=== PATIENT | male | born 1980 | race Caucasian/White ===

== ENCOUNTER 2022-11-29 09:36 | Emergency (ER) | payer BC, SELFPAY ==
--- NOTE | ~2022-11-29 | CT_ITS ---
Noncontrast CT scan of the lumbar spine CLINICAL HISTORY: Back pain TECHNIQUE: Axial noncontrast imaging of the lumbar spine was performed. Sagittal and coronal reformat cristofer images were constructed. Dose reduction technique was used on this scan by utilizing automated ex posure control and iterative reconstruction technique. FINDINGS: There is no fracture or subluxation of the lumbar spine. Vertebral bodies maintain normal h eight and alignment. Intervertebral disc spaces are well preserved. No disc bulge or herniation seen at any lumbar level. No spinal canal stenosis or definite neural for aminal narrowing. Paravertebral soft tissues are unremarkable. IMPRESSION: Unremarkable exam. Reviewed, dictated and finalized at location M. ING MACHINE SERVICE OPERATOR IMPRESSION: Unremarkable exam.
[2022-11-29 09:54] VITALS: BP 149/76; PULSE 79; RESP 15; TEMP 36.6; O2SAT 96
[2022-11-29] MEDS: diazePAM INJ (*CRX) 10 MG/2 ML SYRINGE 2 MG IM (11:17)
[2022-11-29] MEDS: KETOROLAC (*BKC) 60 MG/2 ML VIAL IM (11:17)
--- NOTE | 2022-11-29 11:29 | ED.BACK ---
HPI - Back Pain/Injury General Chief Complaint: Back Pain/Injury <Parris Sanchez PA-C - Last Filed: 11/29/22 12:30> Stated Complaint: CHRONIC BACK PAIN <NELY Keyes Last Filed: 11/29/22 12:30> Time Seen by Provider: 11/29/22 09:55 <NELY Keyes Last Filed: 11/29/22 12:30> Source: patient <NELY Keyes Last Filed: 11/29/22 12:30> Mode of arrival: ambulatory <NELY Keyes Last Filed: 11/29/22 12:30> Limitations: no limitations <NELY Keyes Last Filed: 11/29/22 12:30> History of Present Illness HPI Narrative: Patient is a 42-year-old male who presents to the ED with report of low back pain. Patient reports having a history of previous similar low back pain. He states he had an episode 2 months ago which resolved on its own after a few days of rest. This current episode of pain began on 11/25 and has been progressively worsening since then. He denies any trauma or injury or fall. He has been taking ibuprofen with minimal relief. He states the pain is affecting his mobility at this time, which prompted his presentation. He has been using a cane for assistance. Patient denies any fever, weight loss, bowel or bladder incontinence, saddle anesthesia, pain or weakness in legs, abdominal pain, nausea, vomiting. <NELY Keyes Last Filed: 11/29/22 12:30> Related Data Allergies/Adverse Reactions: Allergies Allergy/AdvReac Type Severity Reaction Status Date / Time No Known Allergies Allergy Verified 11/29/22 09:57 <NELY Keyes Last Filed: 11/29/22 12:30> Review of Systems Review of Systems: CONSTITUTIONAL: Denies weight loss, fever, chills, or sweats. EYES: Denies visual changes. ENT: Denies rhinorrhea, congestion, sore throat. CARDIOVASCULAR: Denies chest pain. RESPIRATORY: Denies dyspnea. GASTROINTESTINAL: Denies incontinence, abdominal pain, nausea, vomiting, or diarrhea. GENITOURINARY: Denies incontinence, dysuria or hematuria. SKIN: Denies rash or itching. MUSCULOSKELETAL: Reports LBP. Denies pain down BLE. NEUROLOGIC: Denies headache, numbness, saddle anesthesia, or weakness. <Parris Sanchez PA-C - Last Filed: 11/29/22 12:30> All systems reviewed & are unremarkable except as noted in HPI and below <Parris Sanchez PA-C - Last Filed: 11/29/22 12:30> PMFSH Past Medical History Medical History: Medical History (Updated 11/30/22 @ 00:00 by Shalini Silva) No pertinent past medical history <Parris Sanchez PA-C - Last Filed: 11/29/22 12:30> Surgical History Surgical History: Surgical History (Updated 11/29/22 @ 11:45 by Parris Sanchez PA-C) No pertinent past surgical history <Parris Sanchez PA-C - Last Filed: 11/29/22 12:30> Social History Social History: Social History (Updated 11/29/22 @ 11:45 by Parris Sanchez PA-C) Smoking status: Never smoker <Parris Sanchez PA-C - Last Filed: 11/29/22 12:30> Exam Narrative: GENERAL: Mildly uncomfortable appearing, well-nourished, non-toxic, in mild acute distress d/t pain. HEAD: Normocephalic, atraumatic. NECK: Supple. No adenopathy, no masses. No midline spinal tenderness. RESPIRATORY: Airway patent, respirations nonlabored. Clear to auscultation bilaterally, no rales, rhonchi, wheezing. CARDIOVASCULAR: Regular rate and rhythm without murmurs, rubs, or gallops. Peripheral pulses 2+ and equal bilaterally. ABDOMINAL: Soft, nontender, nondistended, no hepatosplenomegaly. Normoactive BS. MUSCULOSKELETAL: Moves all extremities. Strength/ROM intact without gross deformities. Slower movements d/t pain but able to perform all movements. No thoracic midline spinal tenderness. Lower midline lumbar spinal tenderness with TTP extending into lumbosacral regions bilaterally. SKIN: Warm, dry, normal color. No rashes. NEURO: A&O X3. Speech clear. Cranial nerve
[2022-11-29 12:10] VITALS: BP 131/91; PULSE 64; RESP 15; O2SAT 99
[2022-11-29] MEDS: methylPREDNISolone SOD SUCC 125 MG VIAL IM (12:46)
== END 2022-11-29 12:46 | disposition home or self-care (01) ==
PROVIDERS: Emergency Provider Emergency Medicine
DX: S39.012A Strain of muscle, fascia and tendon of lower back, initial encounter (principal); X58.XXXA Exposure to other specified factors, initial encounter
CPT/HCPCS: 72131; 96372; 99284; J1885; J2930; J3360

== ENCOUNTER 2023-04-29 16:42 | Emergency (ER) | payer BC, SELFPAY ==
[2023-04-29 16:50] VITALS: BP 130/67; PULSE 80; RESP 12; TEMP 36.1; O2SAT 99
--- NOTE | 2023-04-29 17:03 | ED.EYEPROB ---
HPI - Eye Problem General Chief complaint: Eye Problems Stated complaint: Right Eye Irritation Time Seen by Provider: 04/29/23 17:04 Source: patient Mode of arrival: ambulatory Limitations: no limitations History of Present Illness HPI Narrative: 43-year-old male presented for complaint of right eye irritation and drainage tonight. The right eye was crusted shut this morning. Denies significant pain, stating it is sore from rubbing, worse on the outer corner. He states he may have had something fly into the eye yesterday while working on his car but does not recall injury. He denies vision changes, photophobia, dizziness, headache, nausea, vomiting, fevers or chills. Denies sick contacts. He wears contact lenses, remove them last night. Has been using saline rinse for symptoms. MD chief complaint: eye pain Related Data Allergies Allergy/AdvReac Type Severity Reaction Status Date / Time No Known Allergies Allergy Verified 04/29/23 16:58 Review of Systems Review of Systems: CONSTITUTIONAL: Denies body aches, fever, chills EYES:Endorses redness and drainage, denies swelling, pain, FB sensation, photophobia, visual changes ENT: Denies rhinorrhea, congestion, sore throat, or otalgia. CARDIOVASCULAR: Denies chest pain, palpitations RESPIRATORY: Denies cough or dyspnea. GASTROINTESTINAL: Denies abdominal pain, nausea, vomiting, or diarrhea. SKIN: Denies rash, itching, or wounds. MUSCULOSKELETAL: Denies back pain, joint pain, or myalgia. NEUROLOGIC: Denies headache, numbness, tingling, or weakness. All systems reviewed & are unremarkable except as noted in HPI and below PMFSH Past Medical History Medical History No pertinent past medical history Surgical History Surgical History No pertinent past surgical history Social History Social History Smoking status: Never smoker Comments At time of signature, I have reviewed and agree with nursing past medical, surgical, social and family history unless otherwise noted. Please see nursing chart for further information. There is no relevant family history pertinent to the presenting complaint Exam Narrative: GENERAL: Well-appearing HEAD: Normocephalic, atraumatic. EYES: Right conjunctival injection, moderate amount of purulent drainage, no eye lid swelling/redness c/w stye. PERRLA eOMI. Lid eversion showed no foreign body. No corneal abrasion on Wood's lamp exam. ENT: Mucous membranes pink and moist. No rhinorrhea. CHEST: Clear to auscultation. HEART: Regular rate and rhythm. ABDOMEN: Soft, nontender, nondistended SKIN: Warm, dry, no rash. Normal skin turgor. NEURO: No focal deficits. Alert and oriented x3 Course Course Emergency Course: Patient is aware of diagnosis, understands and agrees to treatment plan. Anticipatory guidance given. Patient agrees to follow-up as directed and is aware of reasons to seek care at the emergency department. Portions of this record may have been created with voice recognition software Level of Care: Express Care Visit Vital Signs Vital signs: Vital Signs Temperature 97 F L 04/29/23 16:50 Pulse Rate 80 04/29/23 16:50 Respiratory Rate 12 04/29/23 16:50 Blood Pressure 130/67 04/29/23 16:50 Pulse Oximetry 99 04/29/23 16:50 Oxygen Delivery Room Air 04/29/23 16:50 Temperature 97 F L 04/29/23 16:50 Pulse Rate 80 04/29/23 16:50 Respiratory Rate 12 04/29/23 16:50 Blood Pressure 130/67 04/29/23 16:50 Pulse Oximetry 99 04/29/23 16:50 Oxygen Delivery Room Air 04/29/23 16:50 Procedures FB Removal Eye Foreign Body #1: Foreign Body Removal Date: 04/29/23 Location: eye (R) Topical anesthetic used: tetracaine Foreign body: other (None) Evidence of corneal penetration: N
== END 2023-04-29 17:21 | disposition home or self-care (01) ==
PROVIDERS: Emergency Provider Nurse Practitioner Family
DX: H10.89 Other conjunctivitis (principal)
CPT/HCPCS: 99213; A9270; G0463

== ENCOUNTER 2025-08-04 17:24 | Emergency (ER) | payer OTHER, SELFPAY ==
[2025-08-04 17:36] VITALS: BP 133/90; PULSE 65; RESP 18; TEMP 36.4; O2SAT 98
--- NOTE | 2025-08-04 18:19 | ED.SKABFB ---
HPI - Skin/Abscess/Foreign Bdy General Chief complaint: Skin/Abscess/Foreign Body Stated complaint: allergic reaction Time Seen by Provider: 08/04/25 18:19 Source: patient, family, RN notes reviewed and old records reviewed Mode of arrival: ambulatory Limitations: no limitations History of Present Illness HPI narrative: 45-year-old male accompanied by why presents to Express Care lesion to central clearing noted scattered small pinprick size rough rash noted to his head, chest, abdomen back, bilateral legs and arms which is not linear in nature but is itchy for the past week. Patient reports that he also has round circular area with central clearing to his left buttock approximately 1.5cm diameter which does not hurt or is itchy since Saturday. Patient is unsure if he has had any exposure to poison plants, denies any new skin care products or any laundry soaps. Patient reports that no one else in home has rash. MD complaint: rash Onset (ago): week(s) (1) Location: generalized and buttocks (left buttock) Severity: moderate Related Data Allergies Allergy/AdvReac Type Severity Reaction Status Date / Time No Known Allergies Allergy Verified 08/04/25 17:50 Review of Systems Review of Systems: CONSTITUTIONAL: Denies fever, chills, or sweats. CARDIOVASCULAR: Denies chest pain, palpitations, or edema. RESPIRATORY: Denies cough or dyspnea. SKIN: Reports generalized areas of rough raised pinprick size rash head chest abdomen, back, legs and arms with itching no burning states no noted drainage, round lesion to left buttock with central clearing also MUSCULOSKELETAL: Denies joint pain or myalgia. NEUROLOGIC: Denies headache, numbness, or weakness. All systems reviewed & are unremarkable except as noted in HPI and below [facility] Past Medical History Medical History (Updated 08/06/25 @ 12:04 by Phyllis Mehta NP) No pertinent past medical history Surgical History Surgical History (Updated 08/06/25 @ 12:00 by Phyllis Mehta NP) Hx of hernia repair No pertinent past surgical history Social History Social History Smoking status: Never smoker Comments At time of signature, agree with nursing past medical, surgical, social and family history. There is no relevant family history pertinent to the presenting complaint Exam Narrative: GENERAL: Well-appearing, well-nourished, and in no acute distress. HEAD: Normocephalic, atraumatic. EYES: PERRLA, conjunctivae clear, and EOMI. ENT: Mucous membranes moist. Oropharynx without edema, erythema or lesions. NECK: Supple. No lymphadenopathy CHEST: Clear to auscultation. No respiratory distress. SAO2 98% on room air HEART: Regular rate and rhythm. SKIN: Warm, dry.? raised small patch areas of rough pinprick rash generalized that is itchy no linear formation. 1.5cm circular lesion to left buttock that has central clearing not itchy patient reports NEURO:? Alert and oriented x3. PSYCH: Normal mood and affect Course Course Emergency Course: Patient is aware of diagnosis, understands and agrees to treatment plan.? Anticipatory guidance given.? Patient agrees to follow-up as directed and is aware of reasons to seek care at the emergency department. Portions of this record may have been created with voice recognition software Level of Care: Express Care Visit Vital Signs Vital signs: Vital Signs Temperature 36.4 C 08/04/25 17:36 Pulse Rate 65 08/04/25 17:36 Respiratory Rate 18 08/04/25 17:36 Blood Pressure 133/90 08/04/25 17:36 Pulse Oximetry 98 08/04/25 17:36 Oxygen Delivery Room Air 08/04/25 17:36 Temperature 36.4 C 08/04/25 17:36 Pulse Rate 65 08/04/25 17:36 Respiratory Rate 18 08/04/25 17:36 Blood Pressure 133/90 08/04/25 17:36 Pulse Oximetry 98 08/04/25 17:36 Oxygen Delivery Room Air 08/04/25 17:36 Reviewed MDM - Skin/Abscess/Foreign Bdy MDM Narrative Medical decision making narrative: Does not appear at this time to be erythema multiforme, bullous, SJS, TEN; no evidence at this time to suggest RMSF, endocarditis or Lyme disease; patient looks well, nontoxic and is tolerating oral intake; no neurologic signs or symptoms; no headache, photophobia or neck pain; afebrile; appropriate for initial outpatient treatment; discussed the importance of follow-up, patient agrees; question, viral exanthema, contact dermatitis, allergic dermatitis, eczema, urticaria, [ xx ]. No soft palate or uvula edema, no tongue, lip edema or other mucosal involvement, no respiratory compromise, no stridor, no wheezing, no wheezing, no history of syncope, no hypotension, no nausea, vomiting, or diarrhea.? Instructed patient to go to nearest ER immediately for any worsening symptoms including but not limited to: fever, spreading rash, pain, sore throat, headache, dizziness, chest pain, trouble breathing, or any symptoms concerning to the patient. Differential Diagnosis Differential diagnosis: Likely abscess of skin or subcutaneous tissue, dermatophytosis, cellulitis, eczema and contact dermatitis Medical Records Attestation: I reviewed the patient's medical records. Critical Care Time Critical Care Time Critical Care Time: No Discharge Plan Discharge Clinical Impression: Ringworm of body Contact dermatitis Qualifiers: Contact dermatitis type: unspecified Contact dermatitis trigger: unspecified trigger Qualified Code(s): L25.9 - Unspecified contact dermatitis, unspecified cause Patient Disposition: Home Condition: Stable Instructions: Contact Dermatitis (ED), Tinea Corporis (ED) Additional Instructions: Apply clotrimazole ointment to left buttock lesion twice daily for up to 2 weeks,follow up with PCP if no improvement watch for increasing infection--redness, swelling, drainage Tylenol or Ibuprofen for any fever or pain follow up with PCP in 7-10 days for a wound check recheck if develop fever, chills, increasing symptom Go to the ER if your symptoms become worse of if ANY new symptoms develop Prednisone taper take as ordered Zyrtec daily and Benadryl orally at bedtime for itching, should not drive while taking Benadryl Pepcid 20 mg daily If your symptoms persist, change or worsen significantly before you can contact your personal physician then please, without delay, go to the emergency department for further evaluation. Follow-up with PCP in 7-10 days or sooner if needed Follow up with PCP soon in regards to your blood pressure which is elevated above threshold for referral. Blood pressure above 120/80 may indicate pre-hypertension. 130/90 Patient Language: Arabic Prescriptions: New clotrimazole 1 % cream 1 applic topical BID 14 Days Qty: 45 0RF Rx Instructions: to site on buttock prednisone 10 mg tablet 10 mg PO DIRECTED Qty: 21 0RF Rx Instructions: see taper instructions 6 tabs day 1, 5 tabs day 2, 4 tabs day 3, 3 tabs day 4, 2 tabs day 5, 1 tab day 6 famotidine [Pepcid] 20 mg tablet 20 mg PO DAILY Qty: 10 0RF Follow-up/Referrals: PHYSICIAN,TENONER OPERATOR [Primary Care Provider, Internal Medicine] Time of Disposition: 18:38 Quality Wayne Coma Scale Eyes: Open Verbal: Oriented and Alert Motor: Follows Commands Jasiel Coma Total Score: 15
== END 2025-08-04 18:45 | disposition home or self-care (01) ==
PROVIDERS: Emergency Provider Registered Nurse
DX: B35.4 Tinea corporis (principal); L25.9 Unspecified contact dermatitis, unspecified cause
CPT/HCPCS: 99213; G0463

== ENCOUNTER 2025-08-09 11:36 | Observation (INO) | payer OTHER, SELFPAY ==
--- OUTSIDE RECORDS SUMMARY | 2006-05-16 03:14 | XMS_ITS | Continuity of Care Document ---
Author Organization [facility] Address [address] [place] [address] Care Team Providers Care Medical Social Worker Name Role Phone Unavailable Unavailable Unavailable Procedures Procedure Date Ecg-routine 12 Lead; Intrpt & Advance Directives Directive Yes / No Effective Date File Name No Information Encounters Encounter Description Practice Location Reason(s) For Visit Diagnoses Date Provider Providers Copied on [facility], [address] [place] [address], [id number], [facility]. No Information No Information Referring Provider: Annabella Peña MD , [address], [address]. tel:[phone] Family History Family Member Type Diagnosis Age At Onset No Information Payers Payer name Insurance type Covered constitution party ID Authoriza tion(s) No Information Social History Type Description Quantity Date Captured Comments Sex Male Smoking Status No Information Chief Complaint And Reason For Visit No Information Reason For Referral Reason For Referral No Information History Of Present Illness Encounter Date Complaint History Of Prese nt Illness No Information Functional Status Date Functional Assessmen t No Information Instructions Date Instruction Additional Infor mation No Information Assessments Type Assessment Date No Information Patient Care Teams Name Effective Dates (start - stop) Status Members No Information
--- OUTSIDE RECORDS SUMMARY | 2006-05-16 03:14 | XMS_ITS | Continuity of Care Document ---
Author Organization [facility] Address [address] [place] [address] Care Team Providers Care Behavioral Health Tech Name Role Phone Unavailable Unavailable Unavailable Procedures Procedure Date Ecg-routine 12 Lead; Intrpt & Advance Directives Directive Yes / No Effective Date File Name No Information Encounters Encounter Description Practice Location Reason(s) For Visit Diagnoses Date Provider Providers Copied on [facility]counter [facility], [address] [place] [address], [id number], [facility]. No Information No Information Referring Provider: Annabella Peña MD , [address], [address]. tel:[phone] Family History Family Member Type Diagnosis Age At Onset No Information Payers Payer name Insurance type Covered democrat ID Authoriza tion(s) No Information Social History [...]
[2025-08-09] VITALS (11 sets, daily range): BP systolic 120–151; BP diastolic 74–95; PULSE 54–78; RESP 17–20; TEMP 36.4–36.6; O2SAT 95–98; BMI 26.0; BMI 26.9
--- NOTE | ~2025-08-09 | XR_ITS ---
Examination: XR chest 2V Clinical History: chest pain, sob Comparison: None Technique: PA and Lateral Findings: Cardiomediastinal silhouette normal size and configuration. Lungs clear. No acute bony abnormality. IMPRESSION: 1. No acute cardiopulmonary findings. Reviewed, dictated and finalized at location A.
--- NOTE | ~2025-08-09 | CT_ITS ---
CTA CHEST CLINICAL HISTORY: shortness of breath . COMPARISON: Chest x-rays 2 days prior TECHNIQUE: Helical CTA performed from thoracic inlet to upper abdomen IV contrast information not listed in PACS Coronal, sagittal reformats. Multiplanar MIPS CT images acquired with automatic exposure control for dose reduction DLP: 685 mGy-cm FINDINGS: Motion artifact could obscure subtle abnormality, especially along bases. Pulmonary arteries: No PE identified. Thoracic Aorta: No dissection or aneurysm. Heart/pericardium: Unremarkable. RV/LV ratio: Normal. Lungs/Pleura: Clear. Tracheobronchial tree: Patent. Nodes: No enlarged nodes. Bones: No acute bony abnormality. Soft tissues: Unremarkable. Visualized upper abdomen: Hepatomegaly, with steatosis. IMPRESSION: 1. No PE or other acute cardiopulmonary findings. Reviewed, dictated and finalized at location R.
--- NOTE | 2025-08-09 11:38 | ECG_ITS ---
Test Date: 2025-08-09 11:45:06 Measurements Intervals [place] Rate: 75 P: 59 WV: 157 QRS: 53 QRSD: 110 T: 46 QT: 379 QTc: 425 Interpretive Statements SINUS RHYTHM No previous ECG available for comparison Electronically Signed On 08-09-2025 12:26:34 CDT by Angel Brooks M.D.
--- OUTSIDE RECORDS SUMMARY | 2025-08-09 11:54 | XMS_ITS | Clinical Summary ---
Author Organization [facility] Address [address] [place] [phone] Phone Care Team Providers Care Senior Contracts Manager Name Role Phone Unavailable Primary Care Provider Unavailabl e Allergies No known active allergies Medications No known medications Active Problems Problem Noted Date Diagnosed Date Umbilical hernia without obstruction and without gangrene 10/30/2018 Umbilical hernia 10/30/2018 Overview (10/30/2018): Added automatically from request for surgery [id number] Abdominal pain 01/25/2012 Family History Medical History Relation Name Comments Diabetes Maternal Grandmother Diabetes Paternal Grandmother Relation Name Status Comments Maternal Grandmother Paternal Grandmother Social History Tobacco Use Types Packs/Day Years Used Date Smoking Tobacco: Former Smokeless Tobacco: Never Comments:1 pack per 2 weeks Alcohol Use Standard Drinks/Week Comments Yes 35 (1 standard drink = 0.6 oz pu re alcohol) Sex and Gender Information Value Date Recorded Sex Assigned at Not on file Legal Sex Male 5:51 AM CONSTRUCTION EQUIPMENT TECHNICIAN Gender Identity Not on file Sexual Orientation Not on file Occupation Industry Job Start Date Job End Date Not on file Not on file Not on file Not on file Last Filed Vital Signs Vital Sign Reading Time Taken Comments Blood Pressure 114/71 11/19/2018 1:06 PM CONSTRUCTION EQUIPMENT TECHNICIAN Pulse 74 11/05/2018 1:43 PM CONSTRUCTION EQUIPMENT TECHNICIAN Temperature 36.1 C (97 F) 11/05/2018 1:43 PM CONSTRUCTION EQUIPMENT TECHNICIAN Respiratory Rate 16 11/05/2018 1:43 PM CONSTRUCTION EQUIPMENT TECHNICIAN Oxygen Saturation 96% 11/05/2018 1:43 PM CONSTRUCTION EQUIPMENT TECHNICIAN Inhaled Oxygen Concentration - - Weight 88.9 kg (196 lb) 11/19/2018 1:06 PM CONSTRUCTION EQUIPMENT TECHNICIAN Height 180.3 cm (5' 11) 11/19/2018 1:06 PM CONSTRUCTION EQUIPMENT TECHNICIAN Body Mass Index 27.34 11/19/2018 1:06 PM CONSTRUCTION EQUIPMENT TECHNICIAN Plan of Treatment Health Maintenance Due Date Last Done Comments DTAP/TDAP/TD VACCINES (1 - Tdap) 2000 HEPATITIS B VACCINES (1 of 3 - 19+ 3-dose series) 03/02 HPV VACCINES (1 - 3-dose SCDM series) 2008 INFLUENZA VACCINE (#1) 2025 Medical Devices Implanted Type Area Field Property Loss Specialist Device Identifier Shelf Expiration Date Model / Serial / Lot Mesh Ventralex 1.7in [facility] [address] [id number] - [id number] Implanted:Qty : 1 on 11/05/2018 by Charles Sánchez MD at [facility] Mesh N/A: Umbilical CR [employer] [id number] 07/29/2020 [id number] / / [id number] Insurance RX [facility] Commercial Advance Directives For more information, please contact: [phone] * Full Code (Latest Code Status on File) Date Activated Date Inactivated Comments 11/05/2018 9:01 AM 11/05/2018 3:58 PM * Full Code Date Activated Date Inactivated Comments 11/05/2018 8:35 AM 11/05/2018 9:01 AM
[2025-08-09 12:02] LABS: Hematocrit 44.3 % (42.0-52.0); Hemoglobin 15.0 g/dL (14.0-18.0); Immature Granulocyte Percent A 1.2 % (0-0.5); Lymphocytes Absolute Auto 4.35 K/mm3 (0.9-3.2); Mean Corpuscular HGB Conc 33.9 g/dl (32-36); Mean Corpuscular Hemoglobin 31.3 pg (26-34); Mean Corpuscular Volume 92.5 fl (80-100); Nucleated Red Blood Cells Absolute Auto 0.000 K/mm3 (0.0-0.012); Nucleated Red Blood Cells Perc 0.0 % (0.0-0.2); Platelet Count Result 252 k/mm3 (150-375); Red Blood Count 4.79 M/mm3 (4.6-6.20); White Blood Count 11.1 K/mm3 (4.5-10.0)
[2025-08-09 12:16] LABS: INR 0.9; Partial Thromboplastin Time 25.4 Seconds (22.3-36.8); Prothrombin Time 12.8 Seconds (11.1-14.7)
[2025-08-09 12:18] LABS: Alanine Aminotransferase 76 U/L (6-50); Albumin Level 4.4 g/dL (3.5-5.1); Alkaline Phosphatase 67 U/L (38-126); Anion Gap 7 mmol/L (4-12); Aspartate Amino Transferase 36 U/L (17-59); Bilirubin,Total 0.5 mg/dL (0.2-1.3); Blood Urea Nitrogen 19 mg/dL (9-20); Calcium 9.3 mg/dL (8.4-10.2); Carbon Dioxide 25 mmol/L (22-30); Chloride 105 mmol/L (98-107); Estimated CRCL calculation 110 ml/min; Estimated Glomerular Filt Rate > 60; Glucose 94 mg/dL (65-110); Lipase 45 U/L (23-300); Potassium 3.7 mmol/L (3.4-5.0); Sodium 137 mmol/L (137-145); Total Protein 8.5 g/dL (6.3-8.2)
--- NOTE | 2025-08-09 12:18 | ED_ITS ---
HPI - General Adult General Chief complaint: Chest Pain Stated complaint: SOB since 0 last night Time Seen by Provider: 08/09/25 11:49 History of Present Illness HPI narrative: 45-year-old male presents to the emergency department for chest tightness and chest pain. Patient is reporting bilateral chest tightness that was worsening this morning along with substernal chest pain that does radiate into his left arm. Patient states that he does not exercise but he does have exertional chest pain. Patient report a stress test approximately 20 years ago patient is unsure why he had this. Patient denies any prior history of pulmonary embolism. Patient denies any recent falls or injuries. Patient denies posterior calf pain. Patient is not a current smoker but does report a prior history of limited smoking. Related Data Allergies Allergy/AdvReac Type Severity Reaction Status Date / Time No Known Allergies Allergy Verified 08/04/25 17:50 Review of Systems 2 Review of Systems: All systems reviewed & are unremarkable except as noted in HPI and below PMFSH Past Medical History Medical History (Updated 08/09/25 @ 15:28 by Mihaela Baca APRN) No pertinent past medical history Surgical History Surgical History (Updated 08/09/25 @ 15:28 by Mihaela Baca APRN) Hx of hernia repair Social History Social History Smoking status: Former smoker Alcohol intake: current Drinks per week: 14 Substance use: never Substance use type: does not use Lack of Transportation: No Lack of Food: Never True Current Housing: I Have Housing Concerned About Future Housing: No Difficulty Paying Gas/Electric Bills: No Difficulty Paying for Meds: No Currently Unemployed: No Education: High School Diploma/GED Difficulty w/ Childcare or Family Care: No Spiritual care concerns: No Exam 2 Narrative: APPEARANCE: Well appearing, no pain, no distress, well-nourished. HEAD: normocephalic, atraumatic. EYES: PERRLA/EOMI, conjunctivae clear. NOSE: Normal no drainage EARS:TMS clear with good light reflex. THROAT: Pharynx clear, no exudate. NECK: Supple. No adenopathy, no masses. RESPIRATORY: Airway patent, respirations nonlabored. Clear to auscultation bilaterally, no rales, rhonchi, wheezing. CARDIOVASCULAR: Regular rate and rhythm without murmurs rubs or gallops. ABDOMINAL: Soft, nontender, nondistended, normal bowel sounds MUSCULOSKELETAL: Moves all extremities. Strength/ROM intact, No edema, No calf tenderness. NEURO: Alert. Cranial nerves II through XII intact. Good gait. Good coordination SKIN: Warm, dry. Normal Color Course Vital Signs Vital signs: Vital Signs Temperature 97.6 F 08/09/25 11:40 Pulse Rate 72 08/09/25 11:40 Respiratory Rate 17 08/09/25 11:40 Blood Pressure 151/95 H 08/09/25 11:40 Pulse Oximetry 98 08/09/25 11:40 Oxygen Delivery Room Air 08/09/25 11:40 Temperature 97.6 F 08/09/25 11:40 Pulse Rate 67 08/09/25 18:00 Respiratory Rate 19 08/09/25 15:42 Blood Pressure 130/88 08/09/25 15:42 Pulse Oximetry 98 08/09/25 15:42 Oxygen Delivery Room Air 08/09/25 11:48 Medical Decision Making [facility] Narrative Medical decision making narrative: 45-year-old male present to the emergency department for evaluation for report of chest pain and chest tightness. Patient does report exertional chest pain that occurs intermittently at work. Patient states that today he had chest tightness and substernal chest pain that radiated to his left arm. Patient was having pain upon arrival to the emergency department he was treated with sublingual nitro and states that the chest pain did resolve but still does have some chest tightness. Patient is currently afebrile but does have a leukocytosis of 11.1 hemoglobin of 15.0. INR 0.9, patient's D-dimer is not elevated at 0.31. No significant acute abnormalities on the CMP and patient had a negative initial troponin. Patient was negative for influenza RSV and for COVID. Chest x-ray shows no acute cardiopulmonary abnormality. EKG shows normal sinus rhythm. Patient does not have a primary care physician and does not have adequate outpatient follow-up. I am concerned with the patient's story of worsening exertional angina. I did discuss admission to the patient for further cardiac rule out and patient was willing to stay. Case will be discussed with the hospitalist. Differential Diagnosis Differential Diagnosis: AR, ACS, pulmonary embolism, pneumonia, pneumothorax, pleurisy Vital Signs Vital Signs: Vital Signs Temperature 97.6 F 08/09/25 11:40 Pulse Rate 72 08/09/25 11:40 Respiratory Rate 17 08/09/25 11:40 Blood Pressure 151/95 H 08/09/25 11:40 Pulse Oximetry 98 08/09/25 11:40 Oxygen Delivery Room Air 08/09/25 11:40 Temperature 97.6 F 08/09/25 11:40 Pulse Rate 67 08/09/25 18:00 Respiratory Rate 19 08/09/25 15:42 Blood Pressure 130/88 08/09/25 15:42 Pulse Oximetry 98 08/09/25 15:42 Oxygen Delivery Room Air 08/09/25 11:48 Lab Data Lab results reviewed: Yes I reviewed the patient's lab results. 08/09/25 11:54 08/09/25 11:54 Labs: Lab Results 08/09/25 08/09/25 Range/Units 11:54 12:28 WBC 11.1 H (4.5-10.0) K/mm3 RBC 4.79 (4.6-6.20) M/mm3 Hgb 15.0 (14.0-18.0) g/dL Hct 44.3 (42.0-52.0) % MCV 92.5 (80-100) fl MCH 31.3 (26-34) pg MCHC 33.9 (32-36) g/dl RDW 13.1 (11.5-14.5) % Plt Count 252 (150-375) k/mm3 MPV 10.1 (7.4-10.4) fl Immature Gran % (Auto) 1.2 H (0-0.5) % Neut % (Auto) 50.1 (45.5-73.1) % Lymph % (Auto) 39.3 (18.3-44.2) % [place] % (Auto) 7.1 (2.6-8.5) % Eos % (Auto) 1.8 (0-4.4) % Baso % (Auto) 0.5 (0.2-1.2) % Lymph # (Auto) 4.35 H (0.9-3.2) K/mm3 [place] # (Auto) 0.8 H (0.1-0.6) K/mm3 Eos # (Auto) 0.2 (0-0.3) K/mm3 Baso # (Auto) 0.1 (0.0-0.1) K/mm3 Abs Immat Gran (auto) 0.13 H (0.00-0.031) K/mm3 Absolute Neuts (auto) 5.6 (1.3-6.7) K/mm3 Absolute Nucleated RBC 0.000 (0.0-0.012) K/mm3 Nucleated RBC % 0.0 (0.0-0.2) % PT 12.8 (11.1-14.7) Seconds INR 0.9 APTT 25.4 (22.3-36.8) Seconds D-Dimer 0.31 (<0.48) ug/mL Sodium 137 (137-145) mmol/L Potassium 3.7 (3.4-5.0) mmol/L Chloride 105 (98-107) mmol/L Carbon Dioxide 25 (22-30) mmol/L Anion Gap 7 (4-12) mmol/L BUN 19 (9-20) mg/dL Creatinine 0.91 (0.7-1.3) mg/dL Estim Creat Clear Calc 110 ml/min Estimated GFR > 60 (59 - ) Glucose 94 (65-110) mg/dL Calcium 9.3 (8.4-10.2) mg/dL Total Bilirubin 0.5 (0.2-1.3) mg/dL AST 36 (17-59) U/L ALT 76 H (6-50) U/L Alkaline Phosphatase 67 (38-126) U/L Troponin I < 0.012 (0.000-0.034) ng/mL Total Protein 8.5 H (6.3-8.2) g/dL Albumin 4.4 (3.5-5.1) g/dL Lipase 45 (23-300) U/L Influenza A (RT-PCR) Negative (Negative) Influenza B (RT-PCR) Negative (Negative) RSV (RT-PCR) Negative (Negative) SARS-CoV-2 RNA (RT-PCR) Negative (Negative) Imaging Data Radiologist's impression: Impressions Chest X-Ray 08/09/25 12:53 IMPRESSION: 1. No acute cardiopulmonary findings. ECG Data EKG #1: EKG Interpretation: normal rate, sinus rhythm, no ectopy, non-specific ST changes, normal QRS, normal QT and NL axis Discharge Plan Discharge Clinical Impression: Chest pain Qualifiers: Chest pain type: other chest pain Qualified Code(s): R07.89 - Other chest pain Patient Disposition: Still a Patient Condition: Stable Quality HEART score for chest pain patients History: highly suspicioius ECG: normal Age: < or = to 45 years Risk factors: 1 or 2 risk factors Troponin: < or = to 1x normal limit Heart score: 3
[2025-08-09 12:25] LABS: Troponin I < 0.012 ng/mL (0.000-0.034)
[2025-08-09] MEDS: NITROGLYCERIN SL 0.4 MG TABLET SUBLINGUAL (12:26)
[2025-08-09] MEDS: ALBUTEROL SULFATE NEB 2.5 MG/3 ML INH INHALATION (12:29)
[2025-08-09 13:11] LABS: Influenza A QL RT-PCR Negative (Negative); Influenza B QL RT-PCR Negative (Negative); RSV RNA, RT-PCR Negative (Negative); SARS-CoV-2 RNA PCR Negative (Negative)
--- NOTE | 2025-08-09 14:58 | PM.IMHP ---
H&P: HPI History of Present Illness Date/Time: 08/09/25 14:58 Chief Complaint: Chest Pain Narrative: 45 y/o M with PMH of GERD presents here with chest pain. The patient presents here from home on 08/09 for further evaluation of chest pain. The patient reports he has been experiencing exertional chest pain for the past couple of weeks and has been occurring on average once per day. Typically feels stabbing as if someone would jab their thumb into his chest, midsternal, would last for less than 10-15 seconds, and would resolve without intervention or medication. Patient again developed chest pain and chest tightness today around 0700 while he was doing physical activity at work. He describes the chest pain as similar to before but this time was accompanied by shortness of breath which was new. This prompted patient to seek evaluation in the emergency department. Upon arrival he had chest pain which was treated with sublingual nitro. Post medication he reports a resolution in pain, however is still experiencing some degree of shortness of breath. He denies nausea, vomiting, diaphoresis, or lightheadedness. He does report occasional palpitations and intermittent acid reflux like symptoms. He has no previous cardiac history. Denies any significant family cardiac history. The patient reports he does not have a primary care physician and does not have adequate outpatient follow-up. The patient denies any recent increase in stress, states his stress has recently decreased. Initial VS at presentation: 97.6? F, HR 72, R 17, 151/95, and 98% on RA. ED workup showed: WBC 11.1, no anemia, normal coags, negative D-dimer, no significant electrolyte derangements, renal function within normal limits, viral PCR negative, initial troponin negative. CXR showed no acute cardiopulmonary findings. EKG showed sinus rhythm, rate 75. Review of Systems Review of Systems: All systems reviewed & are unremarkable except as noted in HPI and below [facility] Past Medical History Medical History (Updated 08/09/25 @ 15:28 by Mihaela Baca APRN) No pertinent past medical history Surgical History Surgical History (Updated 08/09/25 @ 15:28 by Mihaela Baca APRN) Hx of hernia repair Social History Social History Smoking status: Former smoker Alcohol intake: current Drinks per week: 14 Substance use: never Substance use type: does not use Lack of Transportation: No Lack of Food: Never True Current Housing: I Have Housing Concerned About Future Housing: No Difficulty Paying Gas/Electric Bills: No Difficulty Paying for Meds: No Currently Unemployed: No Education: High School Diploma/GED Difficulty w/ Childcare or Family Care: No Spiritual care concerns: No Meds Home Medications and Allergies Home Medications ?Medication ?Instructions ?Recorded ?Confirmed ?Type clotrimazole 1 % topical cream 1 applic topical BID 2 weeks #45 08/04/25 08/09/25 Rx grams famotidine 20 mg tablet (Pepcid) 20 mg PO DAILY #10 tabs 08/04/25 08/09/25 Rx prednisone 10 mg tablet 10 mg PO DIRECTED #21 tabs 08/04/25 08/09/25 Rx Allergies Allergy/AdvReac Type Severity Reaction Status Date / Time No Known Allergies Allergy Verified 08/04/25 17:50 Vital Signs Vital Signs - 24 hr 08/09/25 11:40 08/09/25 11:48 08/09/25 11:50 Temperature 97.6 F Pulse Rate 72 73 Respiratory Rate 17 Blood Pressure 151/95 H Pulse Oximetry 98 Oxygen Delivery Room Air Room Air 08/09/25 12:30 08/09/25 12:36 08/09/25 13:09 Temperature Pulse Rate 78 76 62 Respiratory Rate 20 20 18 Blood Pressure 120/74 Pulse Oximetry 95 Oxygen Delivery Exam Const: General: comfortable and no acute distress Other: , male, nontoxic appearance HENMT: Face/Nose/Sinus: Normal nares present Mouth: Yes moist mucous membranes Eyes: General: appearance normal, both eyes and all related structures Sclera: sclerae normal Pupils: Equal, round and reactive pupils present EOM: EOMs intact bilaterally Resp: Effort & Inspection: normal respiratory effort Auscultation: clear to auscultation bilaterally Cardio: Rate: regular rate Rhythm: regular rhythm Other: S1-S2 present without murmur, rub, ectopy GI: Other: Abdomen soft, nondistended, nontender. Normoactive bowel sounds in all quadrants. Skin: General skin exam: normal color and no rashes or lesions noted Wounds: no wounds Neuro: Speech: normal speech Motor exam (neuro): 5/5 motor strength present throughout Sensory Exam: normal sensation Other: A&O x4 Extrem: General: normal to inspection Psych: Mental Status: mental status grossly normal Affect: normal affect Other: Good insight and judgment, pleasant H&P: Results Labs Labs: Short CBC 08/09/25 Range/Units 11:54 WBC 11.1 H (4.5-10.0) K/mm3 Hgb 15.0 (14.0-18.0) g/dL Hct 44.3 (42.0-52.0) % Plt Count 252 (150-375) k/mm3 BMP 08/09/25 11:54 Sodium 137 Potassium 3.7 Chloride 105 Carbon Dioxide 25 BUN 19 Creatinine 0.91 Glucose 94 Calcium 9.3 Cardiac Enzymes 08/09/25 Range/Units 11:54 Troponin I < 0.012 (0.000-0.034) ng/mL Liver Function 08/09/25 Range/Units 11:54 Total Bilirubin 0.5 (0.2-1.3) mg/dL AST 36 (17-59) U/L ALT 76 H (6-50) U/L Alkaline Phosphatase 67 (38-126) U/L Albumin 4.4 (3.5-5.1) g/dL Assessment and Plan Assessment and plan (1) Chest pain: Qualifiers: Chest pain type: other chest pain Qualified Code(s): R07.89 - Other chest pain Code(s): R07.9 - Chest pain, unspecified Status: Acute Assessment and Plan: The patient has been experiencing exertional chest pain for the past few weeks and has been occurring daily. Presented with midsternal chest pain today and chest tightness that is newly accompanied by shortness of breath. Chest pain largely resolved with administration of sublingual nitro, however the shortness of breath has not resolved. No chest tenderness with palpation. Inadequate follow up outpatient, cardiology consulted for further recommendations. - EKG, initial: Sinus rhythm, rate 75 - CXR: No acute cardiopulmonary findings. - Troponin: <0.012 x3 - ASA 324 given, continue as ASA 81 daily - SL nitro PRN - cardiology consulted, awaiting recs - check lipid panel - no previous stress test or echo on file - telemetry monitoring Plan Diet: Heart healthy, NPO at midnight GI Prophylaxis: N/a DVT Prophylaxis: SCDs IV fluids: None Lines/Tubes: Peripheral IV Code Status: Full code Quality VTE Prophylaxis VTE prophylaxis: mechanical ordered Hospitalist MIPS Advance Care Plan I have confirmed that the patient's Advanced Care Plan is present, code status is documented, or surrogate decision maker is listed in patient medical record.: Yes Medication Reconciliation I have utilized all available resources to obtain, update and review the patients current medications (includes all prescriptions, OTC, herbals, cannabis, and nutritional supplements).: Yes
--- NOTE | 2025-08-09 15:06 | ECG_ITS ---
Test Date: 2025-08-09 15:09:17 Measurements Intervals [place] Rate: 63 P: 51 NH: 150 QRS: 49 QRSD: 108 T: 37 QT: 411 QTc: 421 Interpretive Statements SINUS RHYTHM NORMAL ELECTROCARDIOGRAM Compared to ECG 08/09/2025 11:45:06 No significant changes Electronically Signed On 08-11-2025 15:20:01 CDT by Abhishek Savage M.D.
[2025-08-09 15:47] LABS: Troponin I < 0.012 ng/mL (0.000-0.034)
--- NOTE | 2025-08-09 16:22 | ADMGEN ---
This patient, Gelacio Nunez, was admitted to IMU Room 201-01 at 1620. Patient/family oriented to hospital policies and general routines including ID bracelet, bed and alarms, visiting hours, pain management, procedures, bathroom and other care routines, personal items, smoking policy, room service/diet, and visiting hours. Information on how to activate the Rapid Response Team has been discussed. Patient/Family are encouraged to report perceived risks to care and to ask questions if they do not understand what they are told or what they should do.
[2025-08-09 18:58] LABS: Troponin I < 0.012 ng/mL (0.000-0.034)
[2025-08-10] VITALS (15 sets, daily range): BP systolic 105–133; BP diastolic 48–79; PULSE 50–82; RESP 12–18; TEMP 36.6–36.9; O2SAT 97–100
[2025-08-10 04:25] LABS: Hematocrit 42.9 % (42.0-52.0); Hemoglobin 14.2 g/dL (14.0-18.0); Immature Granulocyte Percent A 1.0 % (0-0.5); Lymphocytes Absolute Auto 3.65 K/mm3 (0.9-3.2); Mean Corpuscular HGB Conc 33.1 g/dl (32-36); Mean Corpuscular Hemoglobin 31.0 pg (26-34); Mean Corpuscular Volume 93.7 fl (80-100); Nucleated Red Blood Cells Absolute Auto 0.000 K/mm3 (0.0-0.012); Nucleated Red Blood Cells Perc 0.0 % (0.0-0.2); Platelet Count Result 224 k/mm3 (150-375); Red Blood Count 4.58 M/mm3 (4.6-6.20); White Blood Count 8.7 K/mm3 (4.5-10.0)
[2025-08-10 04:51] LABS: Anion Gap 8 mmol/L (4-12); Blood Urea Nitrogen 23 mg/dL (9-20); Calcium 8.6 mg/dL (8.4-10.2); Carbon Dioxide 23 mmol/L (22-30); Chloride 106 mmol/L (98-107); Cholesterol 285 mg/dL (0-200); Estimated CRCL calculation 99 ml/min; Estimated Glomerular Filt Rate > 60; Glucose 105 mg/dL (65-110); HDL Direct 45 mg/dL; Potassium 4.6 mmol/L (3.4-5.0); Sodium 137 mmol/L (137-145); Triglycerides 331 mg/dL (<150)
[2025-08-10] MEDS: FAMOTIDINE 20 MG TABLET PO (08:51)
[2025-08-10] MEDS: ASPIRIN 81 MG CHEWABLE TABLET PO (08:52)
--- NOTE | 2025-08-10 08:59 | ECHO_ITS ---
Patient Info Name: Gelacio Nunez Age: 45 years : 1980 Gender: Male Ht: 71 in Wt: 200 lbs BSA: 2.15 m2 HR: 50 bpm BP: 117 / 69 mmHg Heart Rhythm: Sinus Rhythm Technical Quality: Fair Exam Date: 08/10/2025 11:58 AM Patient Status: O Admit Date: 08/09/2025 Exam Type: CA echo doppler color flow Complete two-dimensional, color flow and Doppler transthoracic echocardiogram is performed. Staff Referring Physician: Reuben Che Customer Operations Associate: Rodney Hong III Attending Provider: Josh Bernal Summary 1. Complete two-dimensional, color flow and Doppler transthoracic echocardiogram is performed. 2. Normal left ventricular systolic work for without any regional wall motion abnormality. 3. No valvular dysfunction. 4. Grade 1 diastolic noncompliance. Left Ventricle Left ventricular chamber dimension is normal. Left ventricular systolic function is normal, estimated at 60-65. The left ventricular diastolic function is grade I diastolic dysfunction. Right Ventricle Right ventricular chamber dimension is normal. Left Atria Left atrial chamber dimension is normal. Right Atria Right atrial chamber dimension is normal. Aortic Valve The aortic valve is normal. Pulmonic Valve The pulmonic valve is not well visualized. Mitral Valve The mitral valve has normal leaflets. Tricuspid Valve The tricuspid valve leaflets are normal. Pericardium/Pleural The pericardium appears normal. Aorta The aortic root size at the sinus of Valsalva is normal. Left Ventricular Outflow Tract Name Value Normal LVOT 2D LVOT Diameter 2.2 cm LVOT Doppler LVOT Peak Velocity 95 cm/s LVOT Peak Gradient 4 mmHg LVOT Mean Gradient 2 mmHg LVOT VTI 17 cm LVOT VTI/AV VTI Ratio 1.1 LVOT Stroke Volume 62 ml LVOT CO 14.6 l/min LVOT CI 6.8 l/min/m2 Pulmonic Valve Name Value Normal PV Doppler PV Peak Velocity 82 cm/s PV Peak Gradient 3 mmHg PV Mean Gradient 2 mmHg Mitral Valve Name Value Normal MV Doppler MV Peak Gradient 2 mmHg MV Mean Gradient 1 mmHg MV Area (Cont Eq VTI) 3.8 cm2 MV Diastolic Function MV E Peak Velocity 52 cm/s MV A Peak Velocity 58 cm/s MV E/A 0.9 MV Decel Time (PW) 277 ms MV Annular TDI MV E/e' (Septal) 6.6 MV E/e' (Lateral) 5.0 MV E/e' (Average) 5.8 Tricuspid Valve Name Value Normal TV Regurgitation Doppler TR Peak Velocity 95 cm/s TR Peak Gradient 4 mmHg Estimated PAP/RSVP RA Pressure 10 mmHg <=5 PA Systolic Pressure 14 mmHg <36 RV Systolic Pressure 14 mmHg <36 Aortic Valve Name Value Normal AV Doppler AV Peak Velocity 96 cm/s AV Peak Gradient 4 mmHg AV Mean Gradient 2 mmHg AV VTI 15 cm AV Area (Cont Eq VTI) 4.1 cm2 >=3.0 AV Area (Cont Eq Aidan) 3.7 cm2 AV DI (Aidan) 0.99 AV Regurgitation 2D LVOT Area 3.8 cm2 Ventricles Name Value Normal LV Dimensions 2D/MM IVS Diastolic Thickness (2D) 1.0 cm 0.6-1.0 LVID Diastole (2D) 4.6 cm 4.2-5.8 LVIW Diastolic Thickness (2D) 0.9 cm 0.6-1.0 LVID Systole (2D) 3.3 cm 2.5-4.0 LVOT Diameter 2.2 cm LV Mass (2D Cubed) 148.04 g 88.00-224.00 LV Mass Index (2D Cubed) 69 g/m2 49-115 Relative Wall Thickness (2D) 0.38 <=0.42 LV Fractional Shortening/Ejection Fraction 2D/MM LV Fractional Shortening (2D) 28 % 25-43 LV EF (2D Teichholz) 54 % LV Diastolic Volume (4C MOD) 96 ml LV EF (4C MOD) 50 % LV Diastolic Volume (2C MOD) 74 ml LV EF (2C MOD) 61 % LV Diastolic Volume (BP MOD) 84 ml 62-150 LV Diastolic Volume Index (BP MOD) 39 ml/m2 34-74 LV Systolic Volume (BP MOD) 37 ml 21-61 LV Systolic Volume Index (BP MOD) 17 ml/m2 11-31 LV EF (BP MOD) 56 % 52-72 LV Diastolic Length (4C) 8.4 cm LV Systolic Length (4C) 7.0 cm LV Stroke Volume (4C MOD) 48 ml Atria Name Value Normal LA Dimensions LA Volume (4C A-L) 50 ml LA Volume (BP A-L) 41 ml RA Dimensions RA Systolic Major [place] Length (4C) 4.8 cm 2.1-2.7 RA Area (4C) 12.7 cm2 <=18.0 Report Signatures
[2025-08-10] MEDS: ISOSORBIDE MONONITRATE 15 MG TAB.ER.24H PO (09:07)
[2025-08-10] MEDS: FUROSEMIDE INJ 40 MG/4 ML VIAL IV PUSH (09:07)
--- NOTE | 2025-08-10 09:22 | PM.CNCAR ---
Assessment and Plan Assessment and plan (1) Chest pain: Qualifiers: Chest pain type: other chest pain Qualified Code(s): R07.89 - Other chest pain Code(s): R07.9 - Chest pain, unspecified Status: Acute (2) Shortness of breath: Code(s): R06.02 - Shortness of breath Status: Acute (3) Hyperlipidemia: Code(s): E78.5 - Hyperlipidemia, unspecified Status: Acute Plan 45-year-old man with hypertension hyperlipidemia presented with chest discomfort Chest discomfort -overall appears stable and troponins have ruled out ACS -his shortness of breath is concerning the and further evaluation is warranted while he is inpatient -if his left ventricular systolic function is normal, he can proceed with a nuclear stress test which can be inpatient versus outpatient Shortness of breath -will proceed with transthoracic echocardiogram to evaluate his left ventricular systolic function -in the meantime given that he still has some slight shortness of breath, would give him Lasix IV push 40 mg 1 time dose -will also start isosorbide mononitrate 50 mg p.o. daily; his baseline low heart rate does not permit introduction of beta blockade -will re-evaluate his symptoms Hyperlipidemia -start atorvastatin 80 mg every evening History of Present Illness History of Present Illness Consult date/time: 08/10/25 09:22 Requesting physician: Mihaela Baca APRN Consult reason: chest pain Reason For Visit: EXTERTIONAL CHEST PAIN Narrative: 45-year-old man with hypertension hyperlipidemia presented with chest discomfort. His noted the chest discomfort is exertional in nature for the past month now. 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 Yesterday he had associated severe shortness of breath even at rest that prompted him to present to the emergency room for further evaluation. In the last month he has noted that the same level of activity would bring on few seconds of chest discomfort. The pain typically resolves with rest. Review of Systems Cardiovascular: Cardiovascular: Reports as per HPI Respiratory: Respiratory: Reports as per HPI [facility] Past Medical History Medical History (Updated 08/10/25 @ 09:25 by Angel Brooks MD) No pertinent past medical history Surgical History Surgical History (Updated 08/09/25 @ 15:28 by Mihaela Baca APRN) Hx of hernia repair Social History Social History Smoking status: Former smoker Alcohol intake: current Drinks per week: 14 Substance use: never Substance use type: does not use Lack of Transportation: No Lack of Food: Never True Current Housing: I Have Housing Concerned About Future Housing: No Difficulty Paying Gas/Electric Bills: No Difficulty Paying for Meds: No Currently Unemployed: No Education: High School Diploma/GED Difficulty w/ Childcare or Family Care: No Spiritual care concerns: No Meds Home Medications and Allergies Home Medications ?Medication ?Instructions ?Recorded ?Confirmed ?Type clotrimazole 1 % topical cream 1 applic topical BID 2 weeks #45 08/04/25 08/09/25 Rx grams famotidine 20 mg tablet (Pepcid) 20 mg PO DAILY #10 tabs 08/04/25 08/09/25 Rx prednisone 10 mg tablet 10 mg PO DIRECTED #21 tabs 08/04/25 08/09/25 Rx Allergies Allergy/AdvReac Type Severity Reaction Status Date / Time No Known Allergies Allergy Verified 08/04/25 17:50 Vital Signs Vital Signs - 24 hr 08/09/25 11:40 08/09/25 11:48 08/09/25 11:50 Temperature 36.4 C Pulse Rate 72 73 Respiratory Rate 17 Blood Pressure 151/95 H Pulse Oximetry 98 Oxygen Delivery Room Air Room Air 08/09/25 12:30 08/09/25 12:36 08/09/25 13:09 Temperature Pulse Rate 78 76 62 Respiratory Rate 20 20 18 Blood Pressure 120/74 Pulse Oximetry 95 Oxygen Delivery 08/09/25 15:42 08/09/25 16:21 08/09/25 18:00 Temperature Pulse Rate 54 L 63 67 Respiratory Rate 19 Blood Pressure 130/88 Pulse Oximetry 98 Oxygen Delivery 08/09/25 19:49 08/09/25 20:00 08/09/25 20:00 Temperature 36.6 C Pulse Rate 64 69 Respiratory Rate 18 Blood Pressure 138/85 Pulse Oximetry 98 Oxygen Delivery Room Air 08/09/25 22:00 08/10/25 00:00 08/10/25 00:00 Temperature 36.6 C Pulse Rate 55 L 55 L Respiratory Rate 18 Blood Pressure 124/48 L Pulse Oximetry 99 Oxygen Delivery Room Air 08/10/25 00:00 08/10/25 02:00 08/10/25 04:00 Temperature Pulse Rate 53 L 53 L Respiratory Rate Blood Pressure Pulse Oximetry Oxygen Delivery Room Air 08/10/25 04:00 08/10/25 04:00 08/10/25 06:00 Temperature 36.6 C Pulse Rate 62 59 L 53 L Respiratory Rate 18 Blood Pressure 133/70 Pulse Oximetry 99 Oxygen Delivery 08/10/25 07:43 Temperature 36.6 C Pulse Rate 50 L Respiratory Rate 16 Blood Pressure 117/69 Pulse Oximetry 100 Oxygen Delivery Exam Const: General: comfortable HENMT: Mouth: Yes moist mucous membranes Eyes: EOM: EOMs intact bilaterally Neck: Neck: no JVD Resp: Effort & Inspection: normal respiratory effort Auscultation: clear to auscultation bilaterally Cardio: Rate: bradycardic Rhythm: regular rhythm Heart sounds: no murmurs Neuro: Speech: normal speech Extrem: General: no pedal edema Results Labs and Meds 08/10/25 03:58 08/10/25 03:58 Lab results: Cardiac Enzymes 08/09/25 08/09/25 08/09/25 Range/Units 11:54 15:14 18:19 AST 36 (17-59) U/L Troponin I < 0.012 < 0.012 < 0.012 (0.000-0.034) ng/mL Coagulation 08/09/25 Range/Units 11:54 PT 12.8 (11.1-14.7) Seconds APTT 25.4 (22.3-36.8) Seconds Lipids 08/10/25 Range/Units 03:58 Triglycerides 331 H (<150) mg/dL Cholesterol 285 H (0-200) mg/dL CBC 08/09/25 08/10/25 Range/Units 11:54 03:58 WBC 11.1 H 8.7 (4.5-10.0) K/mm3 RBC 4.79 4.58 L (4.6-6.20) M/mm3 Hgb 15.0 14.2 (14.0-18.0) g/dL Hct 44.3 42.9 (42.0-52.0) % Plt Count 252 224 (150-375) k/mm3 Lymph # (Auto) 4.35 H 3.65 H (0.9-3.2) K/mm3 [place] # (Auto) 0.8 H 0.5 (0.1-0.6) K/mm3 Eos # (Auto) 0.2 0.4 H (0-0.3) K/mm3 Baso # (Auto) 0.1 0.1 (0.0-0.1) K/mm3 Comprehensive Metabolic Panel 08/09/25 08/10/25 Range/Units 11:54 03:58 Sodium 137 137 (137-145) mmol/L Potassium 3.7 4.6 (3.4-5.0) mmol/L Chloride 105 106 (98-107) mmol/L Carbon Dioxide 25 23 (22-30) mmol/L BUN 19 23 H (9-20) mg/dL Creatinine 0.91 0.89 (0.7-1.3) mg/dL Glucose 94 105 (65-110) mg/dL Calcium 9.3 8.6 (8.4-10.2) mg/dL AST 36 (17-59) U/L ALT 76 H (6-50) U/L Alkaline Phosphatase 67 (38-126) U/L Total Protein 8.5 H (6.3-8.2) g/dL Albumin 4.4 (3.5-5.1) g/dL Intake and Output 08/09/25 08/10/25 08/10/25 23:59 07:59 15:59 Intake Total 240 75 Balance 240 75 Intake: Oral 240 75 Other: Intake, Other Source NPO Patient Weight 08/10/25 23:59 Weight 90.8 kg
[2025-08-10] MEDS: ACETAMINOPHEN 325 MG TABLET 650 MG PO (16:08)
--- NOTE | 2025-08-10 16:11 | P.PNIM_ITS ---
Progress Note: A&P Assessment and Plan (1) Chest pain: Qualifiers: Chest pain type: other chest pain Qualified Code(s): R07.89 - Other chest pain Code(s): R07.9 - Chest pain, unspecified Status: Acute (2) Shortness of breath: Code(s): R06.02 - Shortness of breath Status: Acute (3) Headache: Code(s): R51.9 - Headache, unspecified Status: Acute (4) Hyperlipidemia: Code(s): E78.5 - Hyperlipidemia, unspecified Status: Acute (5) LFT elevation: Code(s): R79.89 - Other specified abnormal findings of blood chemistry Status: Acute Plan Pending echocardiogram. Chest pain-free. Continue to appreciate Cardiology recommendations. Continue statin and aspirin started. Received 1 time Lasix. Administer Tylenol for headache, reassess afterwards. On admission ALT 76. Patient is now receiving statin. Continue to trend. Full code. Saline lock IV. Encourage ambulation. Subjective Date/time seen: 08/10/25 16:11 Interval history: Shortness of breath resolved after receiving Lasix administered earlier in the morning. He does report a headache which has slowly progressed. He has headaches at home which are relieved by aspirin and sometimes naps. No chest pain. Review of Systems Review of Systems: All systems reviewed & are unremarkable except as noted in HPI and below (Subjective) Exam Const: General: comfortable and no acute distress HENMT: Mouth: Yes moist mucous membranes Eyes: Pupils: Equal, round and reactive pupils present Neck: Neck: supple Resp: Effort & Inspection: normal respiratory effort Auscultation: clear to auscultation bilaterally Cardio: Rate: regular rate Rhythm: regular rhythm GI: Inspection: non-distended GI Palp: Yes Soft to palpation Neuro: Motor exam (neuro): 5/5 motor strength present throughout Extrem: General: no edema Objective Data Vital Signs Vital Signs: Vital Signs - 24 hr 08/09/25 16:21 08/09/25 18:00 08/09/25 19:49 Temperature 97.8 F Pulse Rate 63 67 64 Respiratory Rate 18 Blood Pressure 138/85 Pulse Oximetry 98 Oxygen Delivery 08/09/25 20:00 08/09/25 20:00 08/09/25 22:00 Temperature Pulse Rate 69 55 L Respiratory Rate Blood Pressure Pulse Oximetry Oxygen Delivery Room Air 08/10/25 00:00 08/10/25 00:00 08/10/25 00:00 Temperature 97.8 F Pulse Rate 55 L 53 L Respiratory Rate 18 Blood Pressure 124/48 L Pulse Oximetry 99 Oxygen Delivery Room Air 08/10/25 02:00 08/10/25 04:00 08/10/25 04:00 Temperature Pulse Rate 53 L 62 Respiratory Rate Blood Pressure Pulse Oximetry Oxygen Delivery Room Air 08/10/25 04:00 08/10/25 06:00 08/10/25 07:43 Temperature 97.8 F 97.8 F Pulse Rate 59 L 53 L 50 L Respiratory Rate 18 16 Blood Pressure 133/70 117/69 Pulse Oximetry 99 100 Oxygen Delivery 08/10/25 08:00 08/10/25 08:00 08/10/25 10:00 Temperature Pulse Rate 60 78 Respiratory Rate Blood Pressure Pulse Oximetry Oxygen Delivery Room Air 08/10/25 12:00 08/10/25 12:00 08/10/25 12:00 Temperature 98.4 F Pulse Rate 82 62 Respiratory Rate 16 Blood Pressure 105/72 Pulse Oximetry 97 Oxygen Delivery Room Air 08/10/25 14:00 08/10/25 15:51 Temperature 98.1 F Pulse Rate 60 70 Respiratory Rate 12 Blood Pressure 112/55 L Pulse Oximetry 97 Oxygen Delivery Intake/Output Intake/Output: Intake & Output 08/07/25 08/08/25 08/09/25 08/10/25 23:59 23:59 23:59 23:59 Intake Total 240 435 Output Total 1000 Balance 240 -565 Meds/Results Medications: Active Medications Generic Name Dose Route Start Last Admin Trade Name Jaskaranq PRN Reason Stop Dose Admin Acetaminophen 650 mg 08/09/25 15:31 08/10/25 16:08 Acetaminophen 325 Mg Tablet PO 650 mg Q4H PRN Administration Mild Pain (1-3) or Fever Aspirin 81 mg 08/10/25 08:00 08/10/25 08:52 Aspirin 81 Mg Chewable Tablet PO 81 mg DAILY@0800 [facility] Administration Atorvastatin Calcium 80 mg 08/10/25 21:00 Atorvastatin 40 Mg Tablet PO QHS ROSALINE Bisacodyl 5 mg 08/09/25 15:31 Bisacodyl 5 Mg Tablet Ec PO DAILY PRN Constipation Calcium Carbonate 200 mg 08/09/25 15:31 Calcium Carbonate (Tums) 500 Mg (200 Mg Elemental) PO Q6H PRN Indigestion Famotidine 20 mg 08/10/25 09:00 08/10/25 08:51 Famotidine 20 Mg Tablet PO 20 mg DAILY ROSALINE Administration Isosorbide Mononitrate 15 mg 08/10/25 09:00 08/10/25 09:07 Isosorbide Mononitrate 15 Mg Tab.Er.24h PO 15 mg QAM ROSALINE Administration Nitroglycerin 0.4 mg 08/09/25 15:31 Nitroglycerin Sl 0.4 Mg Tablet SUBLINGUAL Q5MIN PRN Chest Pain Ondansetron HCl 4 mg 08/09/25 15:31 Ondansetron Inj 4 Mg/2 Ml Vial IV PUSH Q6H PRN Nausea And Vomiting Perflutren Lipid Microsphere 0 ml 08/10/25 08:59 Perflutren Lipid Microspheres 1.5 Ml Vial Diluted To 10 Ml Total Volume IV PUSH 08/13/25 09:00 ONCE PRN adequate visualization Protocol Radiology Results: ITS Impressions Chest X-Ray 08/09/25 12:53 IMPRESSION: 1. No acute cardiopulmonary findings. Labs Labs: Laboratory Results - last 24 hr 08/09/25 08/10/25 18:19 03:58 WBC 8.7 RBC 4.58 L Hgb 14.2 Hct 42.9 MCV 93.7 MCH 31.0 MCHC 33.1 RDW 13.3 Plt Count 224 MPV 9.9 Immature Gran % (Auto) 1.0 H Neut % (Auto) 46.2 Lymph % (Auto) 41.8 [place] % (Auto) 6.2 Eos % (Auto) 4.1 Baso % (Auto) 0.7 Lymph # (Auto) 3.65 H [place] # (Auto) 0.5 Eos # (Auto) 0.4 H Baso # (Auto) 0.1 Abs Immat Gran (auto) 0.09 H Absolute Neuts (auto) 4.0 Absolute Nucleated RBC 0.000 Nucleated RBC % 0.0 Sodium 137 Potassium 4.6 Chloride 106 Carbon Dioxide 23 Anion Gap 8 BUN 23 H Creatinine 0.89 Estim Creat Clear Calc 99 Estimated GFR > 60 Glucose 105 Calcium 8.6 Troponin I < 0.012 Triglycerides 331 H Cholesterol 285 H LDL Cholesterol Direct 177 HDL Direct 45
[2025-08-10] MEDS: ATORVASTATIN 40 MG TABLET 80 MG PO (20:21)
[2025-08-11] VITALS (10 sets, daily range): BP systolic 126–136; BP diastolic 68–79; PULSE 55–79; RESP 12–13; TEMP 36.2–36.6; O2SAT 93–100
[2025-08-11 05:05] LABS: Alanine Aminotransferase 93 U/L (6-50); Albumin Level 4.1 g/dL (3.5-5.1); Alkaline Phosphatase 68 U/L (38-126); Anion Gap 10 mmol/L (4-12); Aspartate Amino Transferase 51 U/L (17-59); Bilirubin,Total 0.6 mg/dL (0.2-1.3); Blood Urea Nitrogen 23 mg/dL (9-20); Calcium 8.8 mg/dL (8.4-10.2); Carbon Dioxide 23 mmol/L (22-30); Chloride 103 mmol/L (98-107); Estimated CRCL calculation 89 ml/min; Estimated Glomerular Filt Rate > 60; Glucose 109 mg/dL (65-110); Potassium 4.0 mmol/L (3.4-5.0); Sodium 136 mmol/L (137-145); Total Protein 7.7 g/dL (6.3-8.2)
[2025-08-11] MEDS: ASPIRIN 81 MG CHEWABLE TABLET PO (08:15)
[2025-08-11] MEDS: ISOSORBIDE MONONITRATE 15 MG TAB.ER.24H PO (08:15)
[2025-08-11] MEDS: FAMOTIDINE 20 MG TABLET PO (08:15)
--- NOTE | 2025-08-11 10:56 | PM.PNCARD ---
Progress Note: A&P Assessment and Plan (1) Chest pain: Qualifiers: Chest pain type: other chest pain Qualified Code(s): R07.89 - Other chest pain Code(s): R07.9 - Chest pain, unspecified Status: Acute (2) Shortness of breath: Code(s): R06.02 - Shortness of breath Status: Acute (3) Hyperlipidemia: Code(s): E78.5 - Hyperlipidemia, unspecified Status: Acute Plan 45-year-old man with hypertension hyperlipidemia presented with chest discomfort Chest discomfort - Resolved -overall appears stable and troponins have ruled out ACS -LV systolic function is normal, EF 60-65%. Discussed with patient and family - will pursue outpatient treadmill nuclear stress test Shortness of breath - resolved w/ IV lasix -LV systolic function normal, does have grade I diastolic dysfunction. No valve pathology. -Continue isosorbide mononitrate 50 mg p.o. daily; his baseline low heart rate does not permit introduction of beta blockade -Any further workup per hospitalist Hyperlipidemia -start atorvastatin 80 mg every evening Subjective Date/time seen: 08/11/25 10:56 Interval history: Cardiology follow up visit Date of service 08/11/2025: Feels well this morning, has no active complaints. Denies chest pain, shortness of breath. Review of Systems Cardiovascular: Cardiovascular: Reports as per HPI Respiratory: Respiratory: Reports as per HPI Exam Const: General: comfortable HENMT: Mouth: Yes moist mucous membranes Eyes: EOM: EOMs intact bilaterally Neck: Neck: no JVD Resp: Effort & Inspection: normal respiratory effort Auscultation: clear to auscultation bilaterally Cardio: Rate: bradycardic Rhythm: regular rhythm Heart sounds: no murmurs Neuro: Speech: normal speech Extrem: General: no pedal edema Objective Data Vital Signs Vital Signs: Vital Signs - 24 hr 08/10/25 12:00 08/10/25 12:00 08/10/25 12:00 Temperature 36.9 C Pulse Rate 82 62 Respiratory Rate 16 Blood Pressure 105/72 Pulse Oximetry 97 Oxygen Delivery Room Air 08/10/25 14:00 08/10/25 15:51 08/10/25 16:00 Temperature 36.7 C Pulse Rate 60 70 Respiratory Rate 12 Blood Pressure 112/55 L Pulse Oximetry 97 Oxygen Delivery Room Air 08/10/25 16:00 08/10/25 18:00 08/10/25 20:00 Temperature 36.7 C Pulse Rate 74 82 79 Respiratory Rate 12 Blood Pressure 131/79 Pulse Oximetry 100 Oxygen Delivery 08/10/25 20:00 08/10/25 20:11 08/10/25 22:00 Temperature Pulse Rate 77 63 Respiratory Rate Blood Pressure Pulse Oximetry Oxygen Delivery Room Air 08/11/25 00:00 08/11/25 00:00 08/11/25 00:00 Temperature 36.6 C Pulse Rate 67 55 L Respiratory Rate 12 Blood Pressure 136/69 Pulse Oximetry 98 Oxygen Delivery Room Air 08/11/25 02:00 08/11/25 04:00 08/11/25 04:00 Temperature Pulse Rate 62 62 Respiratory Rate Blood Pressure Pulse Oximetry Oxygen Delivery Room Air 08/11/25 04:00 08/11/25 06:00 08/11/25 07:26 Temperature 36.6 C 36.2 C L Pulse Rate 64 58 L 65 Respiratory Rate 12 13 Blood Pressure 133/79 126/79 Pulse Oximetry 98 97 Oxygen Delivery 08/11/25 07:45 08/11/25 08:00 08/11/25 09:00 Temperature Pulse Rate 64 Respiratory Rate Blood Pressure Pulse Oximetry 93 Oxygen Delivery Room Air Room Air Intake/Output Intake/Output: Intake & Output 08/08/25 08/09/25 08/10/25 08/11/25 23:59 23:59 23:59 23:59 Intake Total 240 975 Output Total 1450 300 Balance 240 -475 -300 Meds/Results Medications: Active Medications Generic Name Dose Route Start Last Admin Trade Name Felix PRN Reason Stop Dose Admin Acetaminophen 650 mg 08/09/25 15:31 08/10/25 16:08 Acetaminophen 325 Mg Tablet PO 650 mg Q4H PRN Administration Mild Pain (1-3) or Fever Aspirin 81 mg 08/10/25 08:00 08/11/25 08:15 Aspirin 81 Mg Chewable Tablet PO 81 mg DAILY@0800 [facility] Administration Atorvastatin Calcium 80 mg 08/10/25 21:00 08/10/25 20:21 Atorvastatin 40 Mg Tablet PO 80 mg QHS ROSALINE Administration Bisacodyl 5 mg 08/09/25 15:31 Bisacodyl 5 Mg Tablet Ec PO DAILY PRN Constipation Calcium Carbonate 200 mg 08/09/25 15:31 Calcium Carbonate (Tums) 500 Mg (200 Mg Elemental) PO Q6H PRN Indigestion Famotidine 20 mg 08/10/25 09:00 08/11/25 08:15 Famotidine 20 Mg Tablet PO 20 mg DAILY ROSALINE Administration Isosorbide Mononitrate 15 mg 08/10/25 09:00 08/11/25 08:15 Isosorbide Mononitrate 15 Mg Tab.Er.24h PO 15 mg QAM ROSALINE Administration Nitroglycerin 0.4 mg 08/09/25 15:31 Nitroglycerin Sl 0.4 Mg Tablet SUBLINGUAL Q5MIN PRN Chest Pain Ondansetron HCl 4 mg 08/09/25 15:31 Ondansetron Inj 4 Mg/2 Ml Vial IV PUSH Q6H PRN Nausea And Vomiting Perflutren Lipid Microsphere 0 ml 08/10/25 08:59 Perflutren Lipid Microspheres 1.5 Ml Vial Diluted To 10 Ml Total Volume IV PUSH 08/13/25 09:00 ONCE PRN adequate visualization Protocol Radiology Results: ITS Impressions Chest X-Ray 08/09/25 12:53 IMPRESSION: 1. No acute cardiopulmonary findings. Labs Labs: Laboratory Results - last 24 hr 08/11/25 03:43 Sodium 136 L Potassium 4.0 Chloride 103 Carbon Dioxide 23 Anion Gap 10 BUN 23 H Creatinine 1.00 Estim Creat Clear Calc 89 Estimated GFR > 60 Glucose 109 Calcium 8.8 Total Bilirubin 0.6 AST 51 ALT 93 H Alkaline Phosphatase 68 Total Protein 7.7 Albumin 4.1
--- NOTE | 2025-08-11 14:08 | PM.DS ---
DS: Admitting Diagnosis Discharge Date 08/11/2025 Admitting Diagnosis Chest pain/shortness of breath DS: Discharge Diagnosis Discharge Diagnosis (1) Chest pain: Qualifiers: Chest pain type: other chest pain Qualified Code(s): R07.89 - Other chest pain Code(s): R07.9 - Chest pain, unspecified Status: Acute (2) Shortness of breath: Code(s): R06.02 - Shortness of breath Status: Acute (3) LFT elevation: Code(s): R79.89 - Other specified abnormal findings of blood chemistry Status: Acute (4) Hyperlipidemia: Code(s): E78.5 - Hyperlipidemia, unspecified Status: Acute (5) Headache: Code(s): R51.9 - Headache, unspecified Status: Acute DS: Summary Hospital Course Hospital Course: 45-year-old male with history of hypertension, hyperlipidemia presented with chest discomfort, exertional nature. He had substernal jabbing sensation which lasted few seconds especially with physical activity. He had some shortness of breath at rest as well which prompted him to seek further evaluation and [facility] ER. He was admitted on 08/09/2025. Chest pain resolved, troponins negative. No ACS. Surface echocardiogram obtained, LV systolic function normal, EF 60-65%. He will be following up with Cardiology in the outpatient setting to pursue treadmill nuclear stress test. Shortness of breath improved with IV Lasix. He does have grade 1 diastolic dysfunction, no valve pathology. Discharge on isosorbide mononitrate extended release 15 mg p.o. q.day. he has a baseline low heart rate and was not started on a beta-vernon because of this. Chest CTA with PE protocol not demonstrate PE or any acute cardiopulmonary findings. Patient has elevation of ALT to 93. He did have a few beers prior to admission. But, he does not drink heavily. Patient would like to hold off on atorvastatin due to the possible hepatic side effects and he would like to follow-up with his primary care/Cardiology on this matter. He is currently setting up new patient visit with PCP. He does not want to take aspirin at this time. Patient was full code during the admission. All of his questions and concerns were answered to satisfaction. He is stable for discharge on 08/11/2025. Time Spent with Patient Time attestation: Total time spent providing and/or coordinating discharge services: Exam Const: General: comfortable and no acute distress Other: A&O x3 HENMT: Mouth: Yes moist mucous membranes Eyes: Pupils: Equal, round and reactive pupils present Neck: Neck: supple Resp: Effort & Inspection: normal respiratory effort Cardio: Rate: regular rate Rhythm: regular rhythm GI: Inspection: non-distended GI Palp: Yes Soft to palpation Neuro: Motor exam (neuro): 5/5 motor strength present throughout Extrem: General: no edema DS: Data Data Completed and Pending Labs on day of discharge: Labs from last 24 hours 08/11/25 03:43 Sodium 136 L Potassium 4.0 Chloride 103 Carbon Dioxide 23 Anion Gap 10 BUN 23 H Creatinine 1.00 Estim Creat Clear Calc 89 Estimated GFR > 60 Glucose 109 Calcium 8.8 Total Bilirubin 0.6 AST 51 ALT 93 H Alkaline Phosphatase 68 Total Protein 7.7 Albumin 4.1 Discharge Plan Discharge Attending physician on discharge: Dennise Luo Consulting providers: Viv Black Discharging Clinician: Dennise Luo Patient Disposition: Home Activity: april shower Diet: heart healthy Patient Instructions: Antibiotic Form, Isosorbide Mononitrate (By mouth), Atorvastatin (By mouth), Angina (DC), Cardiac Stress Test (GEN) Patient Language: Estonian Stand Alone Forms: General Discharge Information Follow-up/Referrals: Angel Brooks MD [Physician, Interventional Cardiology] - 2 Weeks UNKNOWN,DOCTOR [Primary Care Provider] Referral Note: f/u within 14 days Discharge Medications: New isosorbide mononitrate 30 mg tablet extended release 24 hr 15 mg PO DAILY Qty: 30 0RF Continued clotrimazole 1 % cream 1 applic topical BID 14 Days Qty: 45 0RF Rx Instructions: to site on buttock famotidine [Pepcid] 20 mg tablet 20 mg PO DAILY Qty: 10 0RF Discontinued prednisone 10 mg tablet 10 mg PO DIRECTED Qty: 21 0RF Rx Instructions: see taper instructions 6 tabs day 1, 5 tabs day 2, 4 tabs day 3, 3 tabs day 4, 2 tabs day 5, 1 tab day 6 Date of admission: 08/09/25 15:11 Primary Care Provider: UNKNOWN,DOCTOR Admitting Provider: Josh Bernal Attending physician on admission: Josh Bernal Condition: Stable Hospitalist MIPS Heart Failure (Exclusion) Patient has history of Heart Transplant or Left Ventricular Assistive Device?: No IF YES, STOP HERE Heart Failure (Qualifier) Patient has current or prior documentation of LVEF less than or equal to 40%, or mod/servere depressed LVSF?: No IF NO, STOP HERE
--- NOTE | 2025-08-11 16:22 | PC.NURSE ---
On 08/11/25, the student, Sarah Beth, provided care and completed [facility] documentation on this patient. I have reviewed the student's documentation and agree with the findings.
== END 2025-08-11 14:29 | disposition home or self-care (01) ==
LOC: ANHED 12:05 → ANHIMU 18:57
PROVIDERS: Student in an Organized Health Care Education/Training Program; Admitting Provider Internal Medicine; Emergency Provider Emergency Medicine; Visit Provider General Practice
DX: R07.89 Other chest pain (principal); R06.02 Shortness of breath; E78.5 Hyperlipidemia, unspecified; I51.89 Other ill-defined heart diseases; R51.9 Headache, unspecified; R79.89 Other specified abnormal findings of blood chemistry; Z87.891 Personal history of nicotine dependence; Z20.822 Contact with and (suspected) exposure to COVID-19
CPT/HCPCS: 36415; 71046; 71275; 80048; 80053; 80061; 83690; 84484; 85025; 85380; 85610; 85730; 87637; 93005; 93306; 94640; 96374; 96375; 99285; A9270; G0378; J1938; Q9967